=== PATIENT | female | born 1945 | race Hispanic/Latino ===

== ENCOUNTER 2020-03-02 06:49 | Emergency (ER) | payer MEDICARE, MEDICAID, SELFPAY ==
[2020-03-02] VITALS (37 sets, daily range): BP systolic 86–125; BP diastolic 33–72; PULSE 96–118; RESP 16–27; TEMP 36.9; O2SAT 94–97
--- NOTE | ~2020-03-02 | XR_ITS ---
EXAMINATION: XR chest 1V portable DATE: 03/02/2020 07:22 INDICATION: Shortness of breath. TECHNIQUE: A single frontal view of the chest was obtained. COMPARISON: CT abdomen and pelvis 07/01/2016 FINDINGS: There are moderate-sized right and small left pleural effusions. There are airspace opaciti es in right mid and lower lung zones and left lower lung zone. No pneumothorax. The heart size is nor mal. There is a moderate-sized hiatal hernia. There are changes of vertebroplasty in T11. IMPRESSION: 1. Moderate-sized right and small left pleural effusions. 2. Airspace opacities in right mid and lower lung zones and left lower lung zone, consistent with ate lectasis versus pneumonia. 3. Moderate-sized hiatal hernia. Reviewed, dictated and finalized at location A. IMPRESSION: 1. Moderate-sized right and small left pleural effusions. 2. Airspace opacities in right mid and lower lung zones and left lower lung zon e, consistent with atelectasis versus pneumonia. 3. Moderate-sized hiatal hernia.
--- NOTE | 2020-03-02 06:55 | ED.CHESTPAIN ---
HPI - Chest Pain General Chief Complaint: Chest Pain Stated Complaint: CP, SOB Time Seen by Provider: 03/02/20 06:53 History of Present Illness HPI narrative: Patient is a 74-year-old female who presents the ER with chest pain and shortness of breath. Patient reports symptoms began yesterday around noon but EMS reports he began around 4:30 in the morning. Patient reports its pressure in her chest without radiation. She complains of some dyspnea. She has no complaints of cough or congestion. Unfortunately patient seems somewhat confused about the details what is going on with her as well as her medications despite being oriented to self/place/time. She has history of taking Xifaxan for her cirrhosis. Paperwork that accompanied patient shows that she is recently admitted in the last week to [facility]. Dr. Silva is her netsuite consultant. Patient was attempting being to be diuresed due to her diffuse anasarca. Her last echocardiogram showed a left ventricular ejection fraction 70% with impaired diastolic relaxation. At that time patient also been complaining of dyspnea on exertion and using her inhaler. She had been admitted to [facility] February 17- due to the falls and dyspnea. She was then placed in a snf. Related Data Home Medications Medication Instructions Recorded Confirmed albuterol sulfate INHALATION 03/02/20 atorvastatin 40 mg PO DAILY 03/02/20 03/02/20 budesonide-formoterol 2 puff INHALATION Q12H 03/02/20 03/02/20 bumetanide 1 mg PO DAILY 03/02/20 03/02/20 cholecalciferol (vitamin D3) 50 mcg PO DAILY 03/02/20 03/02/20 lactulose 15 ml PO TID 03/02/20 03/02/20 pantoprazole PO 03/02/20 rifaximin 550 mg PO BID 03/02/20 03/02/20 spironolactone 100 mg PO DAILY 03/02/20 03/02/20 Allergies Allergy/AdvReac Type Severity Reaction Status Date / Time chlorpromazine Allergy Severe Swelling Unverified 03/02/20 07:21 Review of Systems Review of Systems: All systems reviewed & are unremarkable except as noted in HPI and below Constitutional: Constitutional: Denies chills, Denies fever(s) and Reports weakness (Chronic) Cardiovascular: Cardiovascular: Reports chest pain, Denies rapid heart rate and Denies radiating jaw, neck or arm pain Respiratory: Respiratory: Denies cough, Reports dyspnea and Denies wheezing Gastrointestinal: Gastrointestinal: Denies abdominal pain, Denies nausea and Denies vomiting PMFSH Past Medical History Medical History (Updated 03/02/20 @ 12:25 by Bc Larios MD) Cirrhosis COPD (chronic obstructive pulmonary disease) CVA (cerebral vascular accident) Hepatitis C History of congestive heart failure Hypertension Surgical History Surgical History (Updated 03/02/20 @ 08:18 by Bc Larios MD) H/O tubal ligation History of back surgery Social History Social History (Updated 03/02/20 @ 08:24 by Bc Larios MD) Smoking status: Former smoker Exam Narrative: Exam Narrative: GENERAL: Chronically ill-appearing, well-nourished, and in no acute distress. HEAD: Normocephalic, atraumatic. EYES: PERRL and EOMI. Scleral icterus. ENT: Mucous membranes moist. CHEST: Clear to auscultation. No respiratory distress. HEART: Regular rate and rhythm. Murmur at right sternal border. Normal peripheral pulses. ABDOMEN: Soft, nontender, nondistended. EXTREMITIES: Normal range of motion. Anasarca with pitting edema to the arms and legs bilaterally.. SKIN: Warm, dry, no rash. NEURO: Alert and oriented x3. Course Course Emergency Course: Prolonged ER stay due to inability to contact and accepting doctor inpatient at [facility]. Dr. Silva was contacted by the Access team who felt patient should be accepted primarily by GI given the cardiac symptoms. Patient has now been accepted to the [facility] ER by Dr. Altman. The patient has no chest pain at this time and is receiving aspirin and not heparin or Lovenox given the fact that she is pain-free with elevated INR and jarret
--- NOTE | 2020-03-02 06:57 | ECG_ITS ---
Measurements Intervals [place] Rate: 99 P: 7 OH: 129 QRS: 9 QRSD: 71 T: 18 QT: 337 QTc: 433 Interpretive Statements SINUS RHYTHM ATRIAL PREMATURE COMPLEXES CANNOT RULE OUT SEPTAL INFARCT, AGE INDETERMINATE ABNORMAL ECG Electronically Signed On 03-02-2020 8:36:30 CDT by Kulwinder Mi D.O.
--- NOTE | 2020-03-02 07:18 | PC.NURSE ---
this RN attempted IV 2X, no success. leroy BUSTOS taking over and is going to attempt.
--- NOTE | 2020-03-02 07:56 | PC.NURSE ---
IV established with 2nd attempt per this RN (4 total attempts). Note pt with pitting edema x4 extremities and weeping in areas where not being stuck. Pt states she's been having weepy extremities x3 months or so, and was placed on water pills for but it doesn't work .
--- NOTE | 2020-03-02 08:01 | PC.NURSE ---
Phlebotomy at bedside to attempt blood draw.
[2020-03-02 08:23] LABS: Basophils Percent Auto 0.2 % (0.2-1.2); Eosinophils Absolute Auto 0.4 K/mm3 (0-0.3); Eosinophils Percent Auto 3.3 % (0-4.4); Hematocrit 28.7 % (37.0-47.0); Hemoglobin 9.8 g/dL (12.0-15.0); Immature Granulocyte Absolute 0.03 K/mm3 (0.00-0.031); Immature Granulocyte Percent A 0.3 % (0-0.5); Immature Platelet Fraction Pct 3.6 % (0.9-11.2); Lymphocytes Absolute Auto 1.16 K/mm3 (0.9-3.2); Lymphocytes Percent Auto 10.7 % (18.3-44.2); Mean Corpuscular HGB Conc 34.1 g/dl (32-36); Mean Corpuscular Hemoglobin 30.9 pg (26-34); Mean Corpuscular Volume 90.5 fl (80-100); Mean Platelet Volume 11.8 fl (7.4-10.4); Monocytes Absolute Auto 1.5 K/mm3 (0.1-0.6); Monocytes Percent Auto 13.6 % (2.6-8.5); Neutrophils Absolute Auto 7.8 K/mm3 (1.3-6.7); Neutrophils Percent Auto 71.9 % (45.5-73.1); Platelet Count Result 77 k/mm3 (150-375); Red Blood Count 3.17 M/mm3 (4.2-5.4); Red Cell Distribution Width 21.6 % (11.5-14.5); White Blood Count 10.9 K/mm3 (4.5-10.0)
[2020-03-02 08:32] LABS: Ammonia 25 umol/L (9-30)
[2020-03-02 08:33] LABS: Blood Urea Nitrogen 36 mg/dL (7-17); Calcium 7.3 mg/dL (8.4-10.2); Carbon Dioxide 23 mmol/L (22-30); Chloride 94 mmol/L (98-107); Estimated Glomerular Filt Rate 23; Glucose 92 mg/dL (65-105); Sodium 123 mmol/L (137-145)
[2020-03-02 08:34] LABS: Alanine Aminotransferase 104 U/L (4-35); Albumin Level 1.7 g/dL (3.5-5.1); Alkaline Phosphatase 214 U/L (38-126); Aspartate Amino Transferase 200 U/L (14-36); Bilirubin Direct 1.1 mg/dL (0-0.3); Bilirubin,Total 4.5 mg/dL (0.2-1.3); Lipase 530 U/L (23-300)
[2020-03-02 08:42] LABS: NT Pro B Type Natriuretic Pept 457 PG/ML (5-100)
[2020-03-02 08:47] LABS: Troponin I 0.135 ng/mL (0.000-0.034)
[2020-03-02 09:03] LABS: INR 2.8
[2020-03-02 09:04] LABS: Partial Thromboplastin Time 52.6 SECONDS (22.3-36.8)
--- NOTE | 2020-03-02 11:20 | PC.NURSE ---
Pt resting comfortably on stretcher. Denies needs at present. Denies chest pain. Made aware of possible need for transfer to [place] per Dr. Larios.
--- NOTE | 2020-03-02 11:32 | PC.NURSE ---
Phlebotomy at bedside for 3 hr blood collection.
[2020-03-02 12:07] LABS: Troponin I 0.145 ng/mL (0.000-0.034)
[2020-03-02] MEDS: ASPIRIN 81 MG CHEWABLE TABLET 324 MG PO (12:50)
--- NOTE | 2020-03-02 13:36 | PC.NURSE ---
Pt remains painfree. Report to [facility] for transport to [facility].
== END 2020-03-02 13:50 | disposition short-term general hospital (02) ==
PROVIDERS: Emergency Provider Emergency Medicine
DX: I21.4 Non-ST elevation (NSTEMI) myocardial infarction (principal); K72.90 Hepatic failure, unspecified without coma; N19 Unspecified kidney failure; J44.9 Chronic obstructive pulmonary disease, unspecified; I11.0 Hypertensive heart disease with heart failure; I50.9 Heart failure, unspecified; Z86.73 Personal history of transient ischemic attack (TIA), and cerebral infarction without residual deficits
CPT/HCPCS: 36415; 71045; 80048; 80076; 82140; 83690; 83880; 84484; 85025; 85055; 85610; 85730; 93005; 99291; A9270